=== PATIENT | male | born 1955 | race Caucasian/White ===

== ENCOUNTER 2018-12-28 12:33 | Inpatient (IN) ==
[2018-12-28] MEDS ORDERED: TORADOL IV ONE (13:04)
[2018-12-28] MEDS ORDERED: NS 500 ML IV ONE ×2 (13:04→14:32)
[2018-12-28] MEDS ORDERED: ZOFRAN IV ONE ×2 (13:04→14:46)
[2018-12-28 13:15] LABS: BASO# 0.01 X1000 (0.0-0.2); BASO% 0.1 % (0.0-0.8); HEMOGLOBIN 16.8 g/dL (14.0-18.0); IMM GRAN# 0.03 X1000 (0.0-0.04); IMM GRAN% 0.2 % (0.0-0.5); LYMPH% 4.7 % (20.5-51.1); MCH 31.3 PG (27-31); MCV 89.4 FL (81-99); MONO% 9.9 % (1.7-9.3); NEUT# 14.58 X1000 (1.4-6.5); NEUT% 85.1 % (42.2-75.2); PLT 132 X1000 (130-400); RBC 5.37 XMIL (4.7-6.1); RDW 13.7 % (11.5-14.5); WBC 17.12 X1000 (4.8-10.8)
[2018-12-28 13:39] LABS: AGAP 13; ALBUMIN 3.8 g/dL (3.5-5.0); ALKALINE PHOSPHATASE 101 U/L (32-122); AMYLASE 29 U/L (20-200); BUN 10 mg/dL (8-22); CALCIUM 9.2 mg/dL (8.8-10.2); CHLORIDE 98 mmol/L (98-107); COSMO 271; CREATININE 0.8 mg/dL (0.7-1.2); ESTIMATED GFR > 60; GLUCOSE 134 mg/dL (70-104); GOT 10 U/L (10-34); GPT < 5 U/L (10-44); LIPASE 13 U/L (13-60); POTASSIUM 3.5 mmol/L (3.5-5.1); SODIUM 135 mmol/L (136-145); TCO2 25 mmol/L (25-35); TOTAL PROTEIN 7.5 g/dL (6.3-8.3)
[2018-12-28 14:23] LABS: INR 1.15; PROTIME 15.3 Seconds (11.0-16.0)
[2018-12-28 14:24] LABS: PTT 34.2 Seconds (22.3-41.8)
--- NOTE | 2018-12-28 14:31 | Diag Imaging Result Doc PS360 ---
EXAM: CHEST-1 VIEW - 12/28/2018 HISTORY: sepsis screen TECHNIQUE: One view chest COMPARISON: None. FINDINGS: Heart size is normal. There is mild tortuosity of the thoracic aorta. There is perihilar subsegmental atelectasis on the left. There is no consolidation, pleural effusion, or pneumothorax identified. IMPRESSION: Mild perihilar atelectasis on the left. No discrete pneumonia. Electronically signed by Valdemar Simpson 12/28/2018 2:28 PM
[2018-12-28] MEDS ORDERED: ZOSYN 4.5 GM in NS 100 ML IV ONE (14:32)
[2018-12-28] MEDS ORDERED: NS 1,000 ML IV ONE ×2 (14:32→18:29)
[2018-12-28] MEDS ORDERED: VANCOMYCIN 1 GM/NS 1 GM/250 ML IVPB IV ONE (14:32)
--- NOTE | 2018-12-28 14:43 | Diag Imaging Result Doc PS360 ---
EXAM: CT ABD/PELVIS W/IV CONT ONLY - 12/28/2018 HISTORY: [facility]Q [employer]ER AND PAIN TECHNIQUE: CT abdomen/pelvis with intravenous contrast. No oral contrast administered per request of the referring provider. COMPARISON: None. FINDINGS: The visualized lung bases appear clear except for mild subsegmental atelectasis. The gallbladder is distended. The gallbladder campbell appear thickened, and there is pericholecystic inflammation. This is suspicious for acute cholecystitis. There are no calcified gallstones identified. There is no intrahepatic biliary ductal dilatation identified. There is no pancreatic mass or inflammation identified. There is a tiny cyst in the right lobe of liver. The spleen appears upper normal in size. There are no other substantial abnormalities of the liver, spleen, or adrenal glands identified. The bilateral kidneys enhance homogeneously. There is no hydronephrosis. There are no substantial enlarged lymph nodes identified. There are atherosclerotic calcifications noted. There is no evidence of bowel obstruction. What appears to represent the appendix shows no evidence of inflammation. There is colonic diverticulosis, primarily at the sigmoid. There is no evidence of diverticulitis. There is no gas containing abscess identified. There is no free air identified. There is a small amount of free fluid in the pelvis. IMPRESSION: Distended gallbladder, with thickened campbell and pericholecystic inflammation. This is suspicious for acute cholecystitis. No bowel obstruction. Unremarkable appendix. Uncomplicated colonic diverticulosis. This exam was performed using automated exposure control, adjustment of mA or kV according to patient size, and/or use of iterative reconstruction technique. Electronically signed by Valdemar Simpson 12/28/2018 2:40 PM
[2018-12-28] MEDS ORDERED: PROTONIX IV ONE (14:46)
[2018-12-28] MEDS ORDERED: SODIUM CHLORIDE 0.9% INJ ONE (14:46)
[2018-12-28] MEDS ORDERED: MORPHINE IV ONE (14:46)
[2018-12-28] MEDS ORDERED: ZOFRAN IV PRN (16:46)
[2018-12-28] MEDS ORDERED: MORPHINE IV PRN (16:46)
[2018-12-28 16:47] LABS: BILIRUBIN URINE NEGATIVE (NEGATIVE); BLOOD URINE TRACE (NEGATIVE); CLARITY CLEAR (CLEAR); COLOR YELLOW; GLUCOSE URINE NEGATIVE (NEGATIVE); KETONE URINE NEGATIVE (NEGATIVE); LEUKOCYTES URINE 1+ (NEGATIVE); NITRITE URINE NEGATIVE (NEGATIVE); PROTEIN URINE 1+(30 mg/dL) mg/dL (NEGATIVE); UROBILINOGEN URINE 8 mg/dL
[2018-12-28 16:48] LABS: URINE SOURCE CLEAN CATCH
--- NOTE | 2018-12-28 16:48 | EKG Report ---
Test Performed on : 12/28/2018 4:30:18 PM Test Reason : CP Blood Pressure : / mmHG Vent. Rate : 099 BPM Atrial Rate : 099 BPM P-R Int : 130 ms QRS Dur : 088 ms QT Int : 362 ms P-R-T Axes : 063 042 034 degrees QTc Int : 464 ms Sinus rhythm. with premature atrial complexes. Possible Left atrial enlargement Cannot rule out Inferior infarct , age undetermined Abnormal ECG No previous ECGs available Unconfirmed Result
[2018-12-28 16:49] LABS: URINE BACTERIA 1+ /HFP; URINE CAST NONE SEEN /LPF; URINE CRYSTAL NONE SEEN /HPF; URINE EPITHELIAL CELLS <10 /HPF (<10); URINE RBC <10 /HPF (<10); URINE WBC <10 /HPF (<10); URINE YEAST NONE SEEN /HPF
[2018-12-28 17:25] LABS: HEMATOCRIT 44.2 % (42.0-52.0); HEMOGLOBIN 15.4 g/dL (14.0-18.0); MCH 31.4 PG (27-31); MCHC 34.8 g/dL (33-37); MPV 10.7 FL (7.4-10.4); RBC 4.91 XMIL (4.7-6.1); RDW 13.9 % (11.5-14.5); WBC 13.93 X1000 (4.8-10.8)
[2018-12-28] MEDS ORDERED: FLU VACCINE IM ONE (19:13)
[2018-12-29] MEDS: ZOSYN 3.375 GM in NS 50 ML IV SCH ×5 (01:00→23:47)
[2018-12-29] MEDS: NS 1,000 ML IV SCH ×2 (05:52→07:40)
[2018-12-29] MEDS ORDERED: VERSED ONE ×2 (08:58→11:44)
[2018-12-29] MEDS ORDERED: FENTANYL ONE ×2 (08:59→11:44)
[2018-12-29] MEDS ORDERED: DIPRIVAN 1% ONE ×2 (08:59→11:44)
[2018-12-29] MEDS ORDERED: SENSORCAINE-MPF 0.5%/EPI 1:200,000 ONE (09:02)
[2018-12-29] MEDS ORDERED: SODIUM CHLORIDE 0.9% ONE (09:02)
[2018-12-29] MEDS ORDERED: LR 1,000 ML ONE (09:02)
[2018-12-29 09:56] LABS: AGAP 11; ALB/GLOB RATIO 1.4; ALBUMIN 3.6 g/dL (3.5-5.0); ALKALINE PHOSPHATASE 134 U/L (32-122); BUN 10 mg/dL (8-22); CALCIUM 8.4 mg/dL (8.8-10.2); CHLORIDE 101 mmol/L (98-107); COSMO 280; CREATININE 0.8 mg/dL (0.7-1.2); ESTIMATED GFR > 60; GLUCOSE 99 mg/dL (70-104); GOT 27 U/L (10-34); GPT 29 U/L (10-44); POTASSIUM 3.7 mmol/L (3.5-5.1); SODIUM 141 mmol/L (136-145); TCO2 29 mmol/L (25-35); TOTAL BILIRUBIN 1.15 mg/dL (0.20-1.00); TOTAL PROTEIN 6.2 g/dL (6.3-8.3)
[2018-12-29] MEDS ORDERED: QUELICIN (DOSE) ONE (11:51)
[2018-12-29] MEDS ORDERED: XYLOCAINE-MPF 2% ONE (11:51)
[2018-12-29] MEDS ORDERED: ZOFRAN ONE (13:07)
[2018-12-29] MEDS ORDERED: ZEMURON ONE (13:07)
[2018-12-29] MEDS ORDERED: ROBINUL ONE (13:14)
[2018-12-29] MEDS ORDERED: NEOSTIGMINE ONE (13:14)
[2018-12-29] MEDS ORDERED: DECADRON ONE (13:14)
--- NOTE | 2018-12-29 14:49 | Diag Imaging Result Doc PS360 ---
EXAM: OPERATIVE CHOLANGIOGRAM 12/29/2018 HISTORY: GB DISEASE TECHNIQUE: Intraoperative cholangiogram one view COMMENT: There is no evidence of filling defect or obstruction. IMPRESSION: No evidence of retained stones. Electronically signed by Koko Neumann 12/29/2018 2:47 PM
[2018-12-29] MEDS ORDERED: MORPHINE ONE (15:17)
[2018-12-29] MEDS: D5 1/2 NS + KCL 20 MEQ 1,000 ML IV SCH (17:42)
--- NOTE | 2018-12-29 21:09 | HISTORY AND PHYSICAL ---
CHIEF COMPLAINT: Right upper quadrant pain. HISTORY OF PRESENT ILLNESS: This is a 63-year-old male with a 4-5-day history of right upper quadrant pain which has been constant in nature and severe. It is worsened with movement and eating and associated with nausea. He denies fever, chills, constipation or diarrhea. PAST MEDICAL HISTORY: Hypertension, PTSD, anxiety, depression, Parkinson disease. PAST SURGICAL HISTORY: None pertinent. CURRENT MEDICATIONS: The patient does not know all of his medicines, although he does remember taking carbidopa levodopa. FAMILY HISTORY: Reviewed and noncontributory. SOCIAL HISTORY: He smokes half a pack cigarettes per day. Denies alcohol or illicit drug use. REVIEW OF SYSTEMS: Ten systems reviewed and negative except as noted above. PHYSICAL EXAMINATION: VITAL SIGNS: Temperature 99 degrees, pulse 97, respiratory rate 19, blood pressure 126/70. O2 saturation 95%. GENERAL: Well-developed, well-nourished male in no distress who looks stated age. HEENT: Normocephalic, atraumatic. Extraocular muscles intact. Pupils equal, round, reactive to light. Sclerae anicteric. Moist mucous membranes. Hearing grossly normal. No oral lesions. NECK: Supple. No thyromegaly. CV: Regular rate and rhythm. RESPIRATORY: Bilateral equal breath sounds. No work of breathing. GASTROINTESTINAL: Soft, nondistended. He is exquisitely tender in the right upper quadrant with no rebound or guarding. No organomegaly or mass, no hernias. EXTREMITIES: No clubbing, cyanosis, or edema. SKIN: Warm and dry. No rash. MUSCULOSKELETAL: Moves all extremities equally and well. LABORATORY: White blood cell count 13.9, hemoglobin 15, hematocrit 44, platelet count 134,000. Complete metabolic profile reviewed and notable for total bilirubin of 1.2, lipase 13. IMAGING: A abdominal pelvis CT scan shows a thickened gallbladder with pericholecystic inflammation suspicious for acute cholecystitis. ASSESSMENT AND PLAN: A 63-year-old male with acute cholecystitis. He will be admitted, rehydrated, started on Zosyn and we are planning laparoscopic cholecystectomy with operative cholangiogram on 12/29/2018. I discussed risks, benefits, alternatives with him including bleeding, infection, injury to surrounding organs such as the intestines or bile duct, incisional hernia, perioperative cardiopulmonary complications and other imponderables. He understands and agrees to proceed. cc: Gulshan Solis MD
[2018-12-29] MEDS: NORCO-10 PO PRN ×2 (21:11→23:47)
[2018-12-29] MEDS: PERIDEX MT SCH (21:11)
--- NOTE | 2018-12-30 01:44 | OPERATIVE NOTE ---
PROCEDURE DATE: 12/29/2018 PREOPERATIVE DIAGNOSIS: Acute cholecystitis. POSTOP DIAGNOSIS: Acute cholecystitis. PROCEDURE: Laparoscopic cholecystectomy with operative cholangiogram. SURGEON: Gulshan Solis MD. ANESTHESIA: General. ELEMENTARY INSTRUCTIONAL COACH: Orlando Leach MD. ESTIMATED BLOOD LOSS: 275 mL. COMPLICATIONS: None apparent. SPECIMENS: Gallbladder. FINDINGS: The gallbladder was acutely inflamed. The cholangiogram revealed normal proximal hepatic radicles as well as distal bile duct with flow of contrast into the duodenum. No filling defects or stenoses were appreciated. DRAINS: One #19 Iglesia. TECHNIQUE: The patient was brought to the operating room and placed supine on the table. General anesthesia was induced. He was prepped and draped in usual sterile fashion. 0.25% Marcaine with epinephrine was used to anesthetize our incisions. A 12 mm incision was made above the umbilicus. The fascia was exposed and incised sharply. Entry into the peritoneal cavity under direct vision with the Optiview device. Pneumoperitoneum was established. The camera was inserted. There was no evidence of injury to underlying structures. He was placed in reverse Trendelenburg and left rotation. Three 5 mm incision ports were placed across the epigastric and right upper quadrant under direct vision. Dr. Leach was present and helpful throughout the case for retracting the gallbladder, identifying the anatomy, assisting with control of bleeding and eventual closure of the incisions. The dome of the gallbladder was grasped by an Allis clamp. It was a thickened gallbladder and appeared to be distended with bile. I went ahead and punctured it with the needle and suction tie tamper and suctioned out some of the bile for better grasping and retraction. The gallbladder was lifted up superiorly. Omental adhesions were taken down off the gallbladder bluntly. The peritoneum over the triangle of Calot was then opened bluntly with the [place] forceps and I began to dissect out the triangle of Calot with the forceps, the blunt tip of the suction device and Kittner dissectors. Eventually the critical view was obtained. The gallbladder liver junction was seen. There were only 2 structures entering the gallbladder, the cystic duct and cystic artery. A clip was placed on the distal cystic duct. It became apparent that the cystic duct was somewhat wide and would need longer clips so I converted the epigastric port to a larger port size 12 mm and then brought in the longer clips. A ductotomy was made proximally on the cystic duct. A 14-gauge Angiocath was passed through the right upper quadrant. The Taut cholangiogram catheter was passed through this into the cystic duct and held in place with a clip. The cholangiogram was performed with findings as noted above. The clip catheter and Angiocath were removed. Three clips were placed on the proximal cystic duct. It was divided distal to these with scissors. The cystic artery was clipped proximally and distally and incised between with scissors. The gallbladder was then removed from the liver bed using hook cautery. After it was removed there was some brisk bleeding from the liver bed which I initially held pressure with a Ray-Deanne gauze and then applied Surgicel gauze and ultimately Surgicel Snow gauze was placed on the bleeding area. Pressure was held for several minutes. I then irrigated over the liver and in the gallbladder fossa and suctioned out the old blood, irrigation and bile. I then inspected the dissection area and the bleeding was now controlled. There was no signs of any bile leakage. The clips were all intact. I then placed the gallbladder in an EndoCatch bag. A 19 Iglesia drain was brought in and out through the right lateral port site. It was anchored to the skin with nylon suture. It was placed under the liver. The gallbladder and bag were brought out through the epigastric port site. We did extend the skin and fascia incisions slightly to accommodate the large size. The ports were all removed. I closed the epigastric fascia with a running 0 Vicryl. The umbilical port site fascia was closed with a [id number] 0 Vicryl. The skin was closed with 4-0 subcuticular Monocryl and Steri-Strips. There were no apparent complications. He was awakened in stable condition and transferred to the recovery room. cc: Gulshan Solis MD
[2018-12-30] MEDS: ZOSYN 3.375 GM in NS 50 ML IV SCH (05:01)
[2018-12-30] MEDS: NORCO-10 PO PRN ×2 (05:01→09:18)
[2018-12-30] MEDS: D5 1/2 NS + KCL 20 MEQ 1,000 ML IV SCH (05:02)
[2018-12-30 06:15] LABS: HEMATOCRIT 39.4 % (42.0-52.0); HEMOGLOBIN 13.2 g/dL (14.0-18.0)
[2018-12-30 07:30] VITALS: BP 117/85
[2018-12-30] MEDS: PERIDEX MT SCH (09:18)
--- NOTE | 2018-12-31 01:48 | GENERAL SURGERY PROGRESS NOTE ---
DATE: 12/30/2018 SUBJECTIVE: Doing well. He is tolerating clear liquids. Minimal pain. ADRI drain is serosanguineous but is somewhat cloudy. No fevers. No tachycardia. PHYSICAL EXAMINATION: Vital signs: Blood pressure 117/85. General: He is alert. Skin: There is no jaundice. Abdomen: Soft. Incisions are intact. ADRI drain is serosanguineous, a little cloudiness. LABORATORY DATA: Hematocrit is 39. ASSESSMENT/PLAN: A 63-year-old gentleman status post laparoscopic appendectomy. He has a drain. His cholangiogram was normal. He is overall doing okay. He is a little distended on exam. I have recommended another day for this patient, but he is adamant he wants to go home. I have encouraged him to follow up with Dr. Solis this week for drain removal. He is given written instructions. cc: MD Gulshan Sanz MD
== END 2018-12-30 12:01 | disposition home or self-care (01) | DRG 419 ==
LOC: P.ED 12:33 → 4N 17:12
PROVIDERS: ADMIT Surgery; ATTEND Surgery
CPT/HCPCS: 71010; 71045; 74177; 74300; 80053; 81001; 82150; 82550; 83605; 83690; 84484; 85014; 85018; 85025; 85027; 85610; 85730; 87040; 87088; 88304; 93005; 94761; 94799; 96361; 96365; 96375; 96376; 99285; A9270; C1751; C9113; J0330; J1100; J1885; J2250; J2270; J2405; J2543; J3010; J3370; J3480; J7030; J7040; J7120; Q9966; Q9967; S0164